=== PATIENT | female | born 1980 | race African-American/Black ===

== ENCOUNTER 2020-06-13 13:52 | Emergency (ER) | payer BC, SELFPAY ==
[2020-06-13] MEDS ORDERED: Ketorolac Tromethamine 30 MG/ML VIAL ONE (14:51)
== END 2020-06-13 15:07 | disposition home or self-care (01) ==
LOC: CSHERS 13:52
DX: S70.02XA Contusion of left hip, initial encounter (principal); E11.9 Type 2 diabetes mellitus without complications; I10 Essential (primary) hypertension; J45.909 Unspecified asthma, uncomplicated; F17.210 Nicotine dependence, cigarettes, uncomplicated; Z79.899 Other long term (current) drug therapy; W19.XXXA Unspecified fall, initial encounter
CPT/HCPCS: 96372; J1885

== ENCOUNTER 2021-01-23 23:32 | Emergency (ER) | payer SELFPAY ==
[2021-01-24] MEDS ORDERED: Ondansetron PF 4 MG/2 ML Vial ONE (01:07)
[2021-01-24] MEDS ORDERED: Ketorolac Tromethamine 30 MG/ML VIAL ONE (01:07)
[2021-01-24 01:36] LABS: #Basophils 0.1 10x3/uL (0.0-0.2); #Eosinphils 0.3 10x3/uL (0.0-0.5); #Monocytes 0.8 10x3/uL (0.0-1.1); #Neutrophils 5.7 10x3/uL (1.5-8.4); %Basophils 0.5 % (0.0-2.0); %Eosinophils 2.6 % (0.0-6.0); %Lymphocytes 40.3 % (18.0-47.0); %Monocytes 6.6 % (0.0-10.0); %Neutrophils 49.7 % (40.0-75.0); Mean Corpuscular HGB CONC 33.3 g/dL (32.0-36.0); Mean Corpuscular Hemoglobin 29.7 pg (27.0-33.0); Mean Corpuscular Volume 89.2 fl (81.6-98.3); Mean Platelet Volume 10.5 fl (7.4-10.4); Platelet Count 282 10x3/uL (150-450); Red Blood Cell (RBC) Count 4.37 10x6/uL (3.90-5.03); White Blood Cell (WBC) Count 11.6 10x3/uL (3.5-10.5)
[2021-01-24 01:42] LABS: Pregnancy Test - Urine (BHCG) Negative (Negative)
[2021-01-24 01:45] LABS: Bilirubin Neg (Negative); Blood, Urine Negative (Negative); Clarity Clear (Clear); Glucose, Urine (Dipstick) >=1000 mg/dL (Negative); Ketone, Urine Negative (Negative); Leukocyte Negative (Negative); Nitrite Negative (Negative); Pregu Control Background? CLEAR/WHITE (CLR/WHITE); Pregu Control Bar Appear? YES (CONTROL BAR); Protein, Urine (Dipstick) Negative (Neg-Trace); Urobilinogen Normal mg/dL (Less than 2); pH, Urine 6.5 (5.0-9.0)
[2021-01-24 01:54] LABS: ALT (SGPT) 19 U/L (8-55); AST (SGOT) 12 U/L (5-34); Alkaline Phosphatase 110 U/L (40-110); Anion Gap 15 mmol/L (10-20); BUN (Urea Nitrogen) 7 mg/dL (7.0-18.7); Bilirubin, Total 0.2 mg/dL (0.2-1.2); Calc. Creatinine Clearance 0 mL/min (70-130); Calcium 9.3 mg/dL (7.8-10.44); Carbon Dioxide 22 mmol/L (22-29); Chloride 102 mmol/L (98-107); Globulin 3.4 g/dL (2.4-3.5); Glucose 361 mg/dL (70-105); Lipase 41 U/L (8-78); Potassium 4.2 mmol/L (3.5-5.1); Protein, Total 7.4 g/dL (6.0-8.3); Sodium 135 mmol/L (136-145)
[2021-01-24] MEDS ORDERED: Fentanyl 100 MCG/2 ML VIAL ONE (03:43)
[2021-01-24] MEDS ORDERED: Cyclobenzaprine 10 MG TAB ONE (05:05)
[2021-01-24 05:25] LABS: Lactic Acid 1.7 mmol/L (0.5-2.2)
== END 2021-01-24 05:25 | disposition home or self-care (01) ==
LOC: CSHERS 23:32
DX: K62.89 Other specified diseases of anus and rectum (principal); I10 Essential (primary) hypertension; E11.9 Type 2 diabetes mellitus without complications; J45.909 Unspecified asthma, uncomplicated; F17.210 Nicotine dependence, cigarettes, uncomplicated; Z79.84 Long term (current) use of oral hypoglycemic drugs; Z79.899 Other long term (current) drug therapy
CPT/HCPCS: 36415; 74177; 80053; 81003; 81025; 83605; 83690; 85025; 96374; 96375; J1885; J2405; J3010

== ENCOUNTER 2022-05-19 17:34 | Emergency (ER) | payer SELFPAY ==
[2022-05-19] MEDS ORDERED: Ketorolac Tromethamine 30 MG/ML VIAL ONE (17:56)
[2022-05-19] MEDS ORDERED: predniSONE 20 MG TAB ONE (17:56)
[2022-05-19] MEDS ORDERED: Ipratropium/Albuterol 3 ML NEB ONE ×2 (18:14→18:27)
== END 2022-05-19 19:25 | disposition home or self-care (01) ==
LOC: CSHERS 17:34
DX: J45.901 Unspecified asthma with (acute) exacerbation (principal); J06.9 Acute upper respiratory infection, unspecified; F17.210 Nicotine dependence, cigarettes, uncomplicated; E11.9 Type 2 diabetes mellitus without complications; I10 Essential (primary) hypertension
CPT/HCPCS: 36416; 71045; 93005; 94640; 96372; J1885; J7512; J7620

== ENCOUNTER 2022-07-03 10:58 | Emergency (ER) | payer SELFPAY ==
[2022-07-03 11:16] LABS: #Basophils 0.1 10x3/uL (0.0-0.2); #Eosinphils 0.3 10x3/uL (0.0-0.5); #Monocytes 0.5 10x3/uL (0.0-1.1); #Neutrophils 3.3 10x3/uL (1.5-8.4); %Basophils 0.7 % (0.0-2.0); %Eosinophils 3.5 % (0.0-6.0); %Lymphocytes 53.1 % (18.0-47.0); %Monocytes 5.1 % (0.0-10.0); %Neutrophils 37.5 % (40.0-75.0); Hemoglobin 12.1 g/dL (12.0-15.5); Mean Corpuscular HGB CONC 32.4 g/dL (32.0-36.0); Mean Corpuscular Hemoglobin 28.9 pg (27.0-33.0); Mean Corpuscular Volume 89.5 fl (81.6-98.3); Mean Platelet Volume 10.2 fl (7.4-10.4); Platelet Count 293 10x3/uL (150-450); RBC Distribution Width 12.6 % (11.5-14.5); Red Blood Cell (RBC) Count 4.18 10x6/uL (3.90-5.03); White Blood Cell (WBC) Count 8.8 10x3/uL (3.5-10.5)
[2022-07-03 11:28] LABS: INR-International Normal Ratio 0.9; PTT 26.3 sec (22.0-33.0); Prothrombin Time 10.2 sec (9.5-12.1)
[2022-07-03 11:32] LABS: ALT (SGPT) 17 U/L (8-55); AST (SGOT) 15 U/L (5-34); Albumin 4.1 g/dL (3.5-5.0); Alkaline Phosphatase 68 U/L (40-110); Anion Gap 13 mmol/L (10-20); BUN (Urea Nitrogen) 10 mg/dL (7.0-18.7); Bilirubin, Total 0.3 mg/dL (0.2-1.2); Calc. Creatinine Clearance 0 mL/min (70-130); Carbon Dioxide 23 mmol/L (22-29); Chloride 106 mmol/L (98-107); Estimated GFR 101; Globulin 3.1 g/dL (2.4-3.5); Glucose 106 mg/dL (70-105); Potassium 4.2 mmol/L (3.5-5.1); Protein, Total 7.2 g/dL (6.0-8.3); Sodium 138 mmol/L (136-145)
[2022-07-03 12:01] LABS: Eosinophils 3 % (0-10); Monocytes 5 % (0-10); Reactive Lymphocytes 5 % (0-10)
[2022-07-03 12:02] LABS: Lymphocytes 54 % (21-51); Neutrophil 33 % (42-75)
[2022-07-03 12:03] LABS: MDiff Complete? YES
[2022-07-03 12:04] LABS: Platelet Morphology Comment Appears Adequate; RBC Morphology Normal
[2022-07-03] MEDS ORDERED: Aspirin Chewable 81 MG TAB ONE (12:21)
[2022-07-03] MEDS ORDERED: Clopidogrel Bisulfate 75 MG TAB ONE (12:37)
[2022-07-03] MEDS ORDERED: Morphine 4 MG/ML VIAL ONE (12:49)
[2022-07-03] MEDS ORDERED: Iopamidol 370 76% 100 ML VIAL ONE (14:03)
== END 2022-07-03 13:08 | disposition short-term general hospital (02) ==
LOC: CSHERS 10:58
DX: I77.71 Dissection of carotid artery (principal); I10 Essential (primary) hypertension; E11.9 Type 2 diabetes mellitus without complications; F17.210 Nicotine dependence, cigarettes, uncomplicated
CPT/HCPCS: 0042T; 36415; 36416; 70450; 80053; 84484; 85025; 85610; 85730; 93005; 96374; J2270